=== PATIENT | female | born 1995 | race Caucasian/White ===

== ENCOUNTER 2019-09-04 17:16 | Emergency (ER) | payer OTHER ==
[~2019-09-04] VITALS: Ht 165.1 cm; Wt 49.9 kg
[2019-09-04 17:55] LABS: INFLUENZA A ANTIGEN Negative (Negative); INFLUENZA B ANTIGEN Negative (Negative)
[2019-09-04 19:14] VITALS: BP 124/70
--- NOTE | 2019-09-05 10:46 | EKG ---
[place] [address] ELECTROCARDIOGRAM REPORT Name: KENNA AGEE Room: [facility]#: [id number] Admission: 09/04/19 Attend Phys: Discharge: 09/04/19 Date of : 89 Date of Service: 09/04/191729 Report #: [id number] THIS REPORT FOR: //name// [facility] ED Test Date: 2019-09-04 Test Time: 17:30:16 Pat Name: KENNA AGEE Department: Room: Gender: [employer]: [facility] : 1995 Requested By: Gino Lopez Order Number: [id number] Nilson MD: Brandt Johnson Measurements Intervals [employer] Rate: 132 P: 39 [place]: 132 QRS: 53 QRSD: 91 T: -7 QT: 261 QTc: 387 Interpretive Statements Sinus tachycardia RSR' in V1 or V2, probably normal variant Borderline repolarization abnormality No previous ECG available for comparison Electronically Signed On 09-05-2019 10:44:39 CDT by Brandt Johnson [email or web address] <ELECTRONICALLY SIGNED> By: Brandt Johnson MD, [facility] 09/05/19 1044 1730 1730 Brandt Johnson MD, [facility] /EPI
== END 2019-09-04 19:15 | disposition home or self-care (01) ==
LOC: M.ERS 17:16
PROVIDERS: Family Medicine
DX: B34.9 Viral infection, unspecified (principal); J45.909 Unspecified asthma, uncomplicated